=== PATIENT | male | born 1950 | race Caucasian/White ===

== ENCOUNTER 2016-09-21 15:47 | Emergency (ER) | payer BC, OTHER ==
[~2016-09-21] VITALS: Ht 172.7 cm; Wt 83.3 kg
[2016-09-21 15:53] VITALS: BP 124/82
[2016-09-21] MEDS ORDERED: PROPARACAINE OPHTH 0.5%, 15ML ONE (16:29)
[2016-09-21] MEDS ORDERED: PROPARACAINE OPHTH 0.5%, 15ML EACHEYE ONE (16:30)
[2016-09-21] MEDS ORDERED: FLUORESCEIN OPHTHALMIC 1 MG STRIP EACHEYE ONE (16:30)
[2016-09-21 16:37] LABS: BLOOD UREA NITROGEN 17 mg/dL (7-18)
== END 2016-09-21 18:02 | disposition home or self-care (01) ==
LOC: ED 17:46
DX: H53.8 Other visual disturbances (principal)
CPT/HCPCS: 36415; 80048; 82040; 85025; 99284